=== PATIENT | female | born 1965 | race African-American/Black ===

== ENCOUNTER 2016-03-25 13:25 | Outpatient (CLI) | payer OTHER | END 2016-03-25 13:26 | disposition home or self-care (01) | DX: J84.9 Interstitial pulmonary disease, unspecified (principal); M33.10 Other dermatomyositis, organ involvement unspecified ==

== ENCOUNTER 2016-04-15 | Emergency (ER) | payer OTHER | END 2016-04-15 09:10 | disposition home or self-care (01) ==

== ENCOUNTER 2016-04-21 04:05 | Inpatient (IN) | payer OTHER ==
[2016-04-21] MEDS ORDERED: SODIUM CHLORIDE 0.9% 1,000 ML IV ONE ×2 (04:30→04:57)
[2016-04-21] MEDS ORDERED: VANCOMYCIN 1 GM VIAL ONE (04:57)
[2016-04-21] MEDS ORDERED: VANCOMYCIN INJ 1 GM in SODIUM CHLORIDE 0.9% 250 ML IV STA (04:57)
[2016-04-21] MEDS ORDERED: PIPERACILLIN/TAZOBACTAM 4.5 GM in SODIUM CHLORIDE 0.9% MINIBAG 100 ML IV STA (04:57)
[2016-04-21] MEDS ORDERED: SODIUM CHLORIDE 0.9% MINIBAG 100 ML IV ONE (04:59)
[2016-04-21] MEDS ORDERED: SODIUM CHLORIDE 0.9% 250 ML IV ONE (04:59)
[2016-04-21] MEDS ORDERED: ONDANSETRON 4 MG/2 ML VIAL IVP PRN (05:27)
[2016-04-21] MEDS ORDERED: ALBUTEROL NEB 2.5 MG/3 ML INH PRN (05:27)
[2016-04-21] MEDS ORDERED: DEXTROSE 5% 1,000 ML IV PRN (06:46)
[2016-04-21] MEDS ORDERED: GLUCAGON 1 MG/ML VIAL SUBQ PRN (06:46)
[2016-04-21] MEDS ORDERED: DEXTROSE 50% ABBOJECT 25 GM/50 ML SYRINGE IVP PRN (06:46)
[2016-04-21] MEDS ORDERED: DEXTROSE GEL 37.5 GM TUBE PO PRN (06:46)
[2016-04-21] MEDS: ACETAMINOPHEN 325 MG TABLET PO PRN ×2 (07:41→11:51)
[2016-04-21] MEDS: IPRATROPIUM/ALBUTEROL 3 ML NEB INH SCH ×4 (07:45→21:56)
[2016-04-21] MEDS: SODIUM CHLORIDE 0.9% 1,000 ML IV SCH (08:34)
[2016-04-21] MEDS: SACCHAROMYCES BOULARDII 250 MG CAPSULE PO SCH ×2 (08:35→17:53)
[2016-04-21] MEDS: PIPERACILLIN/TAZOBACTAM 4.5 GM in SODIUM CHLORIDE 0.9% MINIBAG 100 ML IV SCH ×2 (08:36→16:07)
[2016-04-21] MEDS: SODIUM CHLORIDE FLUSH 0.9% 10 ML SYRINGE IVP PRN (08:39)
[2016-04-21] MEDS: SODIUM CHLORIDE FLUSH 0.9% 10 ML SYRINGE IVP SCH ×3 (08:39→21:17)
[2016-04-21] MEDS: INSULIN ASPART 300 UNIT/3 ML PEN SUBQ SCH ×4 (08:50→21:15)
[2016-04-21] MEDS ORDERED: INSULIN GLARGINE 300 UNIT/3 ML PEN SUBQ SCH ×3 (09:00→21:30)
[2016-04-21] MEDS: predniSONE 10 MG TABLET PO SCH ×2 (09:07→21:29)
[2016-04-21] MEDS: NIFEdipine ER 90 MG TABLET PO SCH (09:07)
[2016-04-21] MEDS: FERROUS SULFATE 325 MG TABLET PO SCH (09:07)
[2016-04-21] MEDS: MYCOPHENOLATE MOFETIL 250 MG CAPSULE PO SCH ×4 (09:07→21:32)
[2016-04-21] MEDS: ASPIRIN CHEW 81 MG TABLET PO SCH (09:07)
[2016-04-21] MEDS: PATIENT OWN MED PO SCH (09:08)
[2016-04-21] MEDS: POLYETHYLENE GLYCOL 3350 17 GM PACKET PO SCH (09:08)
[2016-04-21] MEDS: ENOXAPARIN 40 MG/0.4 ML SYRINGE SUBQ SCH (09:09)
[2016-04-21] MEDS: HYDROcod/ACETAM 10 MG/325 MG TABLET PO PRN ×2 (11:56→19:30)
[2016-04-21] MEDS ORDERED: IBUPROFEN 800 MG TABLET PO PRN (13:43)
[2016-04-21] MEDS: VANCOMYCIN INJ 1 GM in SODIUM CHLORIDE 0.9% 250 ML IV SCH ×2 (14:13→21:29)
[2016-04-21] MEDS ORDERED: BENZONATATE 100 MG CAPSULE PO PRN (21:04)
[2016-04-21] MEDS: PENTOXIFYLLINE 400 MG TABLET PO SCH (21:29)
[2016-04-21] MEDS: HYDROXYCHLOROQUINE 200 MG TABLET PO SCH (21:30)
[2016-04-21] MEDS ORDERED: INSULIN ASPART 300 UNIT/3 ML PEN SUBQ SCH (22:00)
[2016-04-22] MEDS: PIPERACILLIN/TAZOBACTAM 4.5 GM in SODIUM CHLORIDE 0.9% MINIBAG 100 ML IV SCH ×3 (00:02→16:09)
[2016-04-22] MEDS: VANCOMYCIN INJ 1 GM in SODIUM CHLORIDE 0.9% 250 ML IV SCH ×3 (05:34→21:47)
[2016-04-22] MEDS: PENTOXIFYLLINE 400 MG TABLET PO SCH ×3 (05:41→21:01)
[2016-04-22] MEDS: SODIUM CHLORIDE FLUSH 0.9% 10 ML SYRINGE IVP SCH ×3 (05:42→20:53)
[2016-04-22] MEDS: ACETAMINOPHEN 325 MG TABLET PO PRN (05:45)
[2016-04-22] MEDS: INSULIN ASPART 300 UNIT/3 ML PEN SUBQ SCH ×4 (08:01→20:57)
[2016-04-22] MEDS: SODIUM CHLORIDE 0.9% 1,000 ML IV SCH ×2 (08:05→13:19)
[2016-04-22] MEDS: MYCOPHENOLATE MOFETIL 250 MG CAPSULE PO SCH ×2 (08:32→20:53)
[2016-04-22] MEDS: ENOXAPARIN 40 MG/0.4 ML SYRINGE SUBQ SCH (08:32)
[2016-04-22] MEDS: ASPIRIN CHEW 81 MG TABLET PO SCH (08:33)
[2016-04-22] MEDS: FERROUS SULFATE 325 MG TABLET PO SCH (08:33)
[2016-04-22] MEDS: NIFEdipine ER 90 MG TABLET PO SCH (08:33)
[2016-04-22] MEDS: HYDROXYCHLOROQUINE 200 MG TABLET PO SCH ×2 (08:33→20:55)
[2016-04-22] MEDS: SACCHAROMYCES BOULARDII 250 MG CAPSULE PO SCH ×2 (08:33→17:22)
[2016-04-22] MEDS: predniSONE 10 MG TABLET PO SCH ×2 (08:33→20:59)
[2016-04-22] MEDS ORDERED: INSULIN GLARGINE 300 UNIT/3 ML PEN SUBQ SCH ×3 (09:00→21:00)
[2016-04-22] MEDS: PATIENT OWN MED PO SCH (10:54)
[2016-04-22] MEDS: POLYETHYLENE GLYCOL 3350 17 GM PACKET PO SCH (10:55)
[2016-04-22] MEDS: SODIUM CHLORIDE FLUSH 0.9% 10 ML SYRINGE IVP PRN ×2 (16:10→21:48)
[2016-04-22] MEDS ORDERED: INSULIN ASPART 300 UNIT/3 ML PEN SUBQ SCH (17:00)
[2016-04-22] MEDS: HYDROcod/ACETAM 5/325 MG TABLET PO PRN (17:28)
[2016-04-22] MEDS ORDERED: DIPHENOX/ATROPINE 2.5/0.025 MG TABLET PO PRN (18:35)
[2016-04-22] MEDS: guaiFENesin 600 MG TABLET PO SCH (20:55)
[2016-04-22] MEDS: HYDROcod/ACETAM 10 MG/325 MG TABLET PO PRN (22:30)
[2016-04-23] MEDS: PIPERACILLIN/TAZOBACTAM 4.5 GM in SODIUM CHLORIDE 0.9% MINIBAG 100 ML IV SCH ×3 (00:11→18:13)
[2016-04-23] MEDS: HYDROcod/ACETAM 10 MG/325 MG TABLET PO PRN (03:43)
[2016-04-23] MEDS: PENTOXIFYLLINE 400 MG TABLET PO SCH ×3 (06:27→21:24)
[2016-04-23] MEDS: VANCOMYCIN INJ 1 GM in SODIUM CHLORIDE 0.9% 250 ML IV SCH ×3 (06:27→22:43)
[2016-04-23] MEDS: SODIUM CHLORIDE FLUSH 0.9% 10 ML SYRINGE IVP SCH ×3 (06:27→22:44)
[2016-04-23] MEDS ORDERED: DEXTROSE 50% ABBOJECT 25 GM/50 ML SYRINGE IVP ONE (07:14)
[2016-04-23] MEDS ORDERED: INSULIN GLARGINE 300 UNIT/3 ML PEN SUBQ SCH (07:16)
[2016-04-23] MEDS ORDERED: POTASSIUM CHLOR 10 MEQ/100 ML 100 ML IV SCH (08:00)
[2016-04-23] MEDS ORDERED: SODIUM CHLORIDE 0.9% 1,000 ML IV ONE (08:17)
[2016-04-23] MEDS: HYDROXYCHLOROQUINE 200 MG TABLET PO SCH ×2 (08:24→21:23)
[2016-04-23] MEDS: predniSONE 10 MG TABLET PO SCH (08:24)
[2016-04-23] MEDS: SACCHAROMYCES BOULARDII 250 MG CAPSULE PO SCH ×2 (08:25→17:28)
[2016-04-23] MEDS: MYCOPHENOLATE MOFETIL 250 MG CAPSULE PO SCH ×2 (08:25→21:23)
[2016-04-23] MEDS: NIFEdipine ER 90 MG TABLET PO SCH (08:26)
[2016-04-23] MEDS: FERROUS SULFATE 325 MG TABLET PO SCH (08:26)
[2016-04-23] MEDS: guaiFENesin 600 MG TABLET PO SCH ×2 (08:27→21:24)
[2016-04-23] MEDS: INSULIN ASPART 300 UNIT/3 ML PEN SUBQ SCH ×7 (08:28→21:28)
[2016-04-23] MEDS: ASPIRIN CHEW 81 MG TABLET PO SCH (08:36)
[2016-04-23] MEDS: ENOXAPARIN 40 MG/0.4 ML SYRINGE SUBQ SCH (08:36)
[2016-04-23] MEDS: POLYETHYLENE GLYCOL 3350 17 GM PACKET PO SCH (09:13)
[2016-04-23] MEDS: INSULIN GLARGINE 300 UNIT/3 ML PEN SUBQ SCH ×2 (09:13→21:27)
[2016-04-23] MEDS: PATIENT OWN MED PO SCH (09:13)
[2016-04-23] MEDS ORDERED: POTASSIUM CHLORIDE 20 MEQ TABLET PO ONE ×2 (11:00→18:00)
[2016-04-23] MEDS ORDERED: FLUCONAZOLE 100 MG TABLET PO ONE (18:00)
[2016-04-23] MEDS: POTASSIUM CHLORIDE 20 MEQ TABLET PO ONE ×2 (18:15→18:16)
[2016-04-24] MEDS: PIPERACILLIN/TAZOBACTAM 4.5 GM in SODIUM CHLORIDE 0.9% MINIBAG 100 ML IV SCH ×2 (01:02→07:27)
[2016-04-24] MEDS: PENTOXIFYLLINE 400 MG TABLET PO SCH ×2 (05:11→13:41)
[2016-04-24] MEDS: VANCOMYCIN INJ 1 GM in SODIUM CHLORIDE 0.9% 250 ML IV SCH ×2 (05:11→12:00)
[2016-04-24] MEDS: SODIUM CHLORIDE FLUSH 0.9% 10 ML SYRINGE IVP SCH ×2 (05:27→13:43)
[2016-04-24] MEDS: HYDROcod/ACETAM 5/325 MG TABLET PO PRN (07:38)
[2016-04-24] MEDS ORDERED: predniSONE 10 MG TABLET PO SCH (08:00)
[2016-04-24] MEDS: NIFEdipine ER 90 MG TABLET PO SCH (08:41)
[2016-04-24] MEDS: MYCOPHENOLATE MOFETIL 250 MG CAPSULE PO SCH (08:42)
[2016-04-24] MEDS: FERROUS SULFATE 325 MG TABLET PO SCH (08:42)
[2016-04-24] MEDS: HYDROXYCHLOROQUINE 200 MG TABLET PO SCH (08:42)
[2016-04-24] MEDS: guaiFENesin 600 MG TABLET PO SCH (08:44)
[2016-04-24] MEDS: INSULIN ASPART 300 UNIT/3 ML PEN SUBQ SCH ×7 (08:49→16:50)
[2016-04-24] MEDS: INSULIN GLARGINE 300 UNIT/3 ML PEN SUBQ SCH (08:50)
[2016-04-24] MEDS: ENOXAPARIN 40 MG/0.4 ML SYRINGE SUBQ SCH (08:51)
[2016-04-24] MEDS ORDERED: FLUCONAZOLE 100 MG TABLET PO SCH (09:00)
[2016-04-24] MEDS ORDERED: POTASSIUM CHLORIDE 20 MEQ TABLET PO SCH (09:00)
[2016-04-24] MEDS: PATIENT OWN MED PO SCH (09:00)
[2016-04-24] MEDS: ASPIRIN CHEW 81 MG TABLET PO SCH (09:00)
[2016-04-24] MEDS: POLYETHYLENE GLYCOL 3350 17 GM PACKET PO SCH (09:00)
[2016-04-24] MEDS ORDERED: LORazepam 2 MG/ML SYRINGE IVP PRN (11:24)
[2016-04-24] MEDS ORDERED: SODIUM CHLORIDE 0.9% 500 ML IV ONE (17:29)
== END 2016-04-24 16:55 | disposition short-term general hospital (02) | DRG 871 ==
DX: A41.9 Sepsis, unspecified organism (principal); B37.1 Pulmonary candidiasis; J15.211 Pneumonia due to Methicillin susceptible Staphylococcus aureus; R04.2 Hemoptysis; M33.11 Other dermatomyositis with respiratory involvement; E09.65 Drug or chemical induced diabetes mellitus with hyperglycemia; T38.0X5A Adverse effect of glucocorticoids and synthetic analogues, initial encounter; E11.65 Type 2 diabetes mellitus with hyperglycemia; I10 Essential (primary) hypertension; E87.6 Hypokalemia; K21.9 Gastro-esophageal reflux disease without esophagitis; I73.00 Raynaud's syndrome without gangrene; Z79.4 Long term (current) use of insulin; Z79.2 Long term (current) use of antibiotics; Z79.82 Long term (current) use of aspirin; Z79.52 Long term (current) use of systemic steroids; Z79.891 Long term (current) use of opiate analgesic; Z79.899 Other long term (current) drug therapy; Y92.9 Unspecified place or not applicable

== ENCOUNTER 2016-04-24 19:12 | Outpatient (CLI) | payer OTHER | END 2016-04-24 19:13 | disposition short-term general hospital (02) | DX: R06.00 Dyspnea, unspecified (principal); R07.89 Other chest pain; R05 Cough | CPT/HCPCS: A0170; A0425; A0426 ==

== ENCOUNTER 2016-08-30 09:32 | Outpatient (CLI) | payer OTHER | END 2016-08-30 09:33 | disposition home or self-care (01) | LOC: RT 09:32 | DX: J84.10 Pulmonary fibrosis, unspecified (principal) | CPT/HCPCS: 94010; 94729 ==

== ENCOUNTER 2017-01-31 16:29 | Outpatient (CLI) | payer OTHER | END 2017-01-31 16:30 | disposition home or self-care (01) | LOC: RT 16:29 | PROVIDERS: ATTEND Internal Medicine | DX: J84.10 Pulmonary fibrosis, unspecified (principal) | CPT/HCPCS: 94010; 94727; 94729 ==

== ENCOUNTER 2017-04-02 17:04 | Outpatient (CLI) | payer OTHER | END 2017-04-02 17:05 | disposition home or self-care (01) | LOC: RT 17:04 | PROVIDERS: ATTEND Internal Medicine | DX: J84.10 Pulmonary fibrosis, unspecified (principal) | CPT/HCPCS: 94010; 94727; 94729 ==

== ENCOUNTER 2017-06-29 08:57 | Outpatient (CLI) | payer OTHER | END 2017-06-29 08:58 | disposition home or self-care (01) | LOC: RT 08:57 | PROVIDERS: ATTEND Internal Medicine | DX: J84.10 Pulmonary fibrosis, unspecified (principal) | CPT/HCPCS: 94010; 94727; 94729 ==

== ENCOUNTER 2017-08-23 13:24 | Outpatient (CLI) | payer OTHER ==
[2017-08-23] MEDS ORDERED: ALBUTEROL NEB 2.5 MG/3 ML INH ONE (14:00)
== END 2017-08-23 13:25 | disposition home or self-care (01) ==
LOC: RT 13:24
PROVIDERS: ATTEND Internal Medicine
DX: J84.10 Pulmonary fibrosis, unspecified (principal)

== ENCOUNTER 2017-08-30 08:06 | Outpatient (CLI) | payer OTHER ==
--- NOTE | 2017-08-31 10:07 | MRI Report ---
Procedure Date: 08/30/2017 Accession Number: [id number] / [id number] Procedure: MRI - Hand RT W/O CPT Code: FULL RESULT: EXAM: RIGHT HAND MRI WITHOUT CONTRAST EXAM DATE: 08/30/2017 08:51 AM. CLINICAL HISTORY: DISORDER OF THE SKIN AND SUBCUTANEOUS TISSUE. COMPARISON: None. TECHNIQUE: Multiplanar, multisequence T1-weighted and fluid-sensitive sequences of the hand without contrast. Other: None. FINDINGS: Bones: No fractures or subluxations. No marrow edema. No bone lesions. Cartilage: The articular cartilage is unremarkable. Ligaments: The visualized collateral ligaments are intact. Tendons: The flexor and extensor tendons are unremarkable. Musculature: No edema or fatty atrophy. Other: No joint effusions. There is a semilunar intermediate signal on all sequence soft tissue mass at the dorsal aspect of the third metacarpal which measures 1.7 cm in width, 1.7 cm in length and of 4.3 mm in thickness. Possible superficial mass calcification (image 18 series [id number]). Susceptibility effect from a prosthesis second metacarpophalangeal joint. IMPRESSION: 1. At the dorsal aspect of the third metatarsal is an intermediate signal subcutaneous soft tissue mass which is superficial to the extensor tendon and the without associated tenosynovitis, bony erosion or increased joint fluid. Possible superficial mass calcification. Recommend x-ray correlation for evaluation of soft tissue calcification. 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 Excision recommended if mass continues to enlarge. 2. 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 [facility] MUSCULOSKELETAL RADIOLOGY SECTION
== END 2017-08-30 08:07 | disposition home or self-care (01) ==
LOC: DI 08:06
PROVIDERS: ATTEND Internal Medicine
DX: L98.9 Disorder of the skin and subcutaneous tissue, unspecified (principal)

== ENCOUNTER 2018-05-12 10:21 | Outpatient (CLI) | payer OTHER ==
--- NOTE | 2018-05-13 17:14 | DEXA Report ---
Reason: DERMATOPOLYMYOSITIS,UNSEPCIFIED,ORGAN INVOLVEMENT Procedure Date: 05/12/2018 Accession Number: [id number] / [id number] Procedure: DEX - Dexa Spine and/or Hip CPT Code: FULL RESULT: EXAM: Dexa Spine and/or Hip DATE: 05/12/2018 10:48 AM CLINICAL HISTORY: Dermatopolymyositis INVOLVEMENT TECHNIQUE: Dual energy x-ray absorptiometry (DXA) was performed on a [employer] System. Regions measured are the AP Spine, femoral neck, and if needed forearm. COMPARISON: None. In accordance with the International Society for Clinical Densitometry (ISCD) guidelines, data from previous exams may be reanalyzed using current recommendations and techniques. This is done to allow a more accurate basis for comparison with the current study. FINDINGS: The data for the lumbar spine is as follows: BMD (g/cm/cm) T-SCORE Z-SCORE REGION L1 1.079 -0.4 -0.9 L2 1.088 -0.9 -1.5 L3 1.233 0.3 -0.2 L4 1.351 1.3 0.7 TOTAL 1.199 0.2 -0.4 NOTE: All evaluable vertebrae are used for classification The data for the hip is as follows: BMD (g/cm/cm) T-SCORE Z-SCORE REGION Neck 0.957 -0.6 -0.9 TOTAL 0.932 -0.6 -1.3 NOTE: The femoral neck or total proximal femur, whichever is lowest, is used for classification. IMPRESSION: THE WHO CLASSIFICATION BASED ON THE INTERNATIONAL REFERENCE STANDARD IS NORMAL. THE FRACTURE RISK IS NOT INCREASED. RECOMMENDATION: Patients with diagnosis of osteoporosis or osteopenia should have regular bone mineral density assessment. For those eligible for Medicare, routine testing is allowed once every 2 years. Testing frequency can be increased for patients who have rapidly progressing disease or for those who are receiving medical therapy to restore bone mass. COMMENT: World Health Organization (WHO) definitions for osteoporosis and osteopenia: NORMAL BMD: T-score at -1.0 or higher, fracture risk is low OSTEOPENIA BMD: T-score between -1.0 and -2.5, fracture risk is increased. OSTEOPOROSIS BMD: T-score at -2.5 or lower, fracture risk is high. National Osteoporosis Foundation recommends: 1. Obtain adequate dietary calcium (at least 1200 mg per day) and vitamin D (400-800 international units per day). 2. Participate, as appropriate, in regular weightbearing and muscle-strengthening exercise. 3. Avoid tobacco use and reduce alcohol and caffeine intake. 4. For more detailed information see the website at www.NOF.org.
== END 2018-05-12 10:22 | disposition home or self-care (01) ==
LOC: DI 10:21
PROVIDERS: ATTEND General Practice
DX: M33.90 Dermatopolymyositis, unspecified, organ involvement unspecified (principal)
CPT/HCPCS: 77080